=== PATIENT | female | born 1990 | race Caucasian/White ===

== ENCOUNTER 2016-10-05 17:33 | Emergency (ER) | payer OTHER ==
[2016-10-05] MEDS ORDERED: IBUPROFEN 800 MG TABLET PO ONE (18:13)
[2016-10-05] MEDS ORDERED: ONDANSETRON 4 MG TAB.RAPDIS PO ONE (18:13)
--- NOTE | 2016-10-05 18:15 | ER Document Report ---
ED Medical Screen (RME) - General Chief Complaint: Dizziness Stated Complaint: HEADACHE,NAUSEA Mode of Arrival: Ambulatory Information source: Patient Notes: Patient presents to the emergency department because she feels faint sick and has a headache. She reports symptoms since yesterday. She does report she fell down 3 [address]ed stairs yesterday but doesn't really think she hit her head. Patient complains of nausea. She took Excedrin at 2:00. PERRL, Nontoxic looking, denies , reports nexplanon TRAVEL OUTSIDE OF THE [place] IN LAST 30 DAYS: No - Related Data Allergies/Adverse Reactions: Penicillins Allergy (Mild, Verified 10/05/16 18:10) Hives amoxicillin [Amoxicillin] Allergy (Verified 10/05/16 18:10) Past Medical History Neurological Medical History: Reports: Hx Migraine Psychiatric Medical History: Reports: Hx Anxiety - Immunizations Hx Diphtheria, Pertussis, Tetanus Vaccination: No
[2016-10-05] MEDS ORDERED: ALPRAZOLAM 0.25 MG TABLET PO ONE (22:22)
--- NOTE | 2016-10-05 22:24 | ER Document Report ---
ED General - General Chief Complaint: Dizziness Stated Complaint: HEADACHE,NAUSEA Mode of Arrival: Ambulatory Information source: Patient Notes: This is a 25-year-old female who presents to the ER for evaluation of feeling nauseated and lightheaded for the past 2 or 3 days. She actually states that the symptoms have been going on even longer but worse the past 2 days. Also today she has a sharp intermittent left-sided headache which at this time has been well controlled with the Motrin that she received upon arrival. She denies any fevers or vomiting. No neck pain or stiffness. She states that she takes Klonopin for anxiety and she ran out about one week ago. She has an appointment with her primary care doctor in a few days for her refill. TRAVEL OUTSIDE OF THE [place] IN LAST 30 DAYS: No - Related Data Allergies/Adverse Reactions: Penicillins Allergy (Mild, Verified 10/05/16 18:10) Hives amoxicillin [Amoxicillin] Allergy (Verified 10/05/16 18:10) Past Medical History - General Information source: Patient - Social History Smoking Status: Current Some Day Smoker Chew tobacco use (# tins/day): No Frequency of alcohol use: None Drug Abuse: None Family History: Reviewed & Not Pertinent Patient has suicidal ideation: No Patient has homicidal ideation: No Neurological Medical History: Reports: Hx Migraine Renal/ Medical History: Denies: Hx Peritoneal Dialysis Psychiatric Medical History: Reports: Hx Anxiety Surgical Hx: Negative - Immunizations Hx Diphtheria, Pertussis, Tetanus Vaccination: No Review of Systems - Review of Systems Notes: REVIEW OF SYSTEMS: CONSTITUTIONAL : Denies fever, chills, or sweats. Denies recent illness. EENT: Denies eye, ear, throat, or mouth pain or symptoms. Denies nasal or sinus congestion. CARDIOVASCULAR: Denies chest pain. RESPIRATORY: Denies cough, cold, or chest congestion. Denies shortness of breath, difficulty breathing, or wheezing. GASTROINTESTINAL: Denies abdominal pain. Nausea per HPI. No vomiting. GENITOURINARY: Denies difficulty urinating, painful urination, burning, frequency, or blood in urine. FEMALE GENITOURINARY: Denies vaginal bleeding, abnormal or irregular periods MUSCULOSKELETAL: left ribcage pain SKIN: Denies rash or skin lesions. HEMATOLOGIC : Denies easy bruising or bleeding. LYMPHATIC: Denies swollen, enlarged glands. NEUROLOGICAL: Denies altered mental status or loss of consciousness. Headache as per HPI, but it has resolved now PSYCHIATRIC: anxiety, out of Klonopin ALL OTHER SYSTEMS REVIEWED AND NEGATIVE. Physical Exam - Vital signs Vitals: Temp Pulse Resp BP Pulse Ox 98.6 F 72 169 H 142/96 H 100 10/05/16 18:10 10/05/16 18:10 10/05/16 18:10 10/05/16 18:10 10/05/16 18:10 - Notes Notes: PHYSICAL EXAMINATION: GENERAL: Well-appearing, well-nourished and in no acute distress, but somewhat anxious affect HEAD: Atraumatic, normocephalic. EYES: Pupils equal round and reactive to light, extraocular movements intact, sclera anicteric, conjunctiva are normal. ENT: nares patent, oropharynx clear without exudates. Moist mucous membranes. NECK: Normal range of motion, supple without lymphadenopathy LUNGS: Breath sounds clear to auscultation bilaterally and equal. No wheezes rales or rhonchi. HEART: Regular rate and rhythm without murmurs CHEST: No external deformity. No bruising. +TTP to left lateral ribcage. No crepitus ABDOMEN: Soft, nontender, normoactive bowel sounds. No guarding, no rebound. No masses appreciated. EXTREMITIES: Normal range of motion, no pitting or edema. No cyanosis. NEUROLOGICAL: Cranial nerves grossly intact. Normal speech, normal gait. Normal sensory, motor, and reflex exams. PSYCH: anxious affect SKIN: Warm, Dry, normal turgor, no rashes or lesions noted. Course - Re-evaluation Re-evalutation: 10/05/16 23:15 Patient states that she fell down 3 stairs yesterday after she mis-stepped. She did not hit her head and she denies loss of consciousness. However she has left-sided rib pain that she states hurts with deep inspiration. 10/05/16 23:17 Orthostatic vitals obtained and are normal 10/06/16 00:18 I verified that we are still awaiting chest x-ray and rib x-rays. Radiology will call when they are ready for patient. - Vital Signs Vital signs: Temp Pulse Resp BP Pulse Ox 98.6 F 74 18 121/84 99 10/05/16 23:09 10/05/16 23:09 10/05/16 23:09 10/05/16 23:09 10/05/16 23:09 - Laboratory Laboratory results interpreted by me: 10/05/16 22:39 Urine Ketones TRACE H Ur Leukocyte Esterase LARGE H - Diagnostic Test Radiology reviewed: Image reviewed Discharge - Discharge Clinical Impression: Nausea, Anxiety UTI (urinary tract infection) Qualifiers: Urinary tract infection type: acute cystitis Hematuria presence: without hematuria Qualified Code(s): N30.00 - Acute cystitis without hematuria Condition: Good Disposition: HOME, SELF-CARE Additional Instructions: Rib Contusion You have been diagnosed as having bruised ribs. It will usually take a few weeks for these injured ribs to heal. You should cough or take a deep breath at least every hour or two to prevent lung complications. You should not engage in any strenuous physical activity until released by your physician. The usual rule is "if it hurts, don' t do it." Return if you develop any of the following: (1) Fever or chills. (2) Persistent cough, coughing up blood, or shortness of breath. (3) Increasing pain. (4) Weakness, lightheadedness, or fainting. URINARY TRACT INFECTION: Your evaluation indicates that you have a urinary tract infection. This is due to germs growing in the bladder. This is a common problem. This infection usually responds quickly to antibiotics. Your antibiotic should be taken exactly as prescribed. Drink plenty of fluids -- three to four quarts a day. Occasionally, a bladder anesthetic will be prescribed to help stop the feeling of urgency until the antibiotic has a chance to clear the infection. This may cause your urine to be dark orange. Certain urine infections require a culture. If the doctor obtained a culture, the results will be back in two days. You should call to see if a change in treatment is needed. A repeat urinalysis after you finish treatment is often recommended. The physician will let you know if further testing is required. Call the doctor if you develop fever, chills, flank pain, inability to urinate, or blood in the urine. ANTIBIOTIC THERAPY: You have been given an antibiotic prescription. It's important that you take all the medication, unless instructed otherwise by your physician. Failure to complete the entire course can result in relapse of your condition. Common side effects of antibiotics include nausea, intestinal cramping, or diarrhea. Women may develop vaginal yeast infections, and babies can get yeast (thrush) in the mouth following the use of antibiotics. Contact your physician if you develop significant side effects from this medication. Allergy to this antibiotic can result in hives, wheezing, faintness, or itching. If symptoms of allergy occur, stop the medication and call the doctor. TRIMETHOPRIM-SULFA: You have been given a prescription for trimethoprim-sulfa (TMS, Septra, Bactrim). This is a combination antibiotic of the sulfa class, often used for urinary tract infections, middle ear infections, bronchitis, shigella intestinal infection, and Pneumocystis pneumonia. TMS is usually well-tolerated. Occasional side effects include nausea and decreased appetite. Septra is not recommended for infants less than two months of age. Do not take this medication if you have experienced severe side effects or allergy to sulfa medicine. You should stop this medicine at once and contact your physician if you develop any rash, joint pain, shortness of breath, bruising, or jaundice ( yellow color in the skin), or if you develop any other new or unusual symptoms. Nausea or Vomiting, Nonspecific Vomiting (or nausea without vomiting) can be caused by many different problems. Of course, it can mean that something's wrong with the stomach, such as "stomach flu," ulcers, or inflammation. But it can also be a symptom of a problem that has nothing to do with the stomach or intestines. Vomiting is common with severe headaches, earaches, and tonsillitis. We see it with pneumonia or heart attacks. Drugs can cause nausea. Many abdominal problems cause vomiting; for example, gallstones, kidney stones, pancreatitis, and intestinal obstruction (blocked bowels). In most cases, curing the vomiting depends on fixing the problem that caused it. For temporary relief, we may use an anti-nausea medicine. For home use, we can prescribe suppositories, chewable pills, pills that dissolve in the mouth, or liquid anti-nausea drugs. If the vomiting seems to be caused by a problem in the stomach, acid-suppressing drugs may be prescribed as well. It's important to avoid dehydration. Sip clear liquids. Take increasing amounts of fluid over the first 24 hours. Then start small amounts of bland foods (such as dry toast, applesauce, mashed potato). Avoid aspirin, tobacco, and alcohol. Gradually resume your usual diet. If the vomiting worsens, if the problem that's making you vomit worsens, or if there's evidence of bleeding in the stomach (such as black, tarry stool, bloody or black vomit, or lightheadedness), you should return immediately. Call your doctor if you aren't improved in 24 to 36 hours. Anxiety The physician feels that some of your health problems are being caused by anxiety. Anxiety affects your health in many ways. Anxiety alone can cause palpitations, sweats, chest pains, abdominal pains, shortness of breath, and headaches. It contributes to ulcer disease, high blood pressure, irritable bowel syndrome, and has been shown to cause flare-ups of many other diseases. Anxiety is not a simple disorder to treat. If the anxiety is due to recent life stresses, you may simply need time to "work through" the changes. If the anxiety is due to an underlying unhappiness with yourself or due to psychiatric disturbance, professional help will be needed. Your physician can refer you for further help if needed. Anti-anxiety medication is occasionally given if the stress is acute or if you are having trouble sleeping. Chronic or frequent use of these medications is not a good idea because the body becomes reliant on it, preventing you from dealing with life's normal stresses. FOLLOW-UP CARE: If you have been referred to a physician for follow-up care, call the physician s office for an appointment as you were instructed or within the next two days. If you experience worsening or a significant change in your symptoms, notify the physician immediately or return to the Emergency Department at any time for re-evaluation. Prescriptions: Ibuprofen [Motrin 600 Mg Tablet] 600 mg PO TID PRN #15 tablet PRN Reason: Sulfamethoxazole/Trimethoprim [Bactrim Ds Tablet] 1 each PO BID #6 tablet
[2016-10-05 22:53] LABS: APPEARANCE,URINE CLOUDY; BILIRUBIN,URINE NEGATIVE (NEGATIVE); GLUCOSE, URINE NEGATIVE (NEGATIVE); KETONES,URINE TRACE mg/dL (NEGATIVE); LEUKOCYTE ESTERASE,URINE LARGE (NEGATIVE); NITRITE,URINE NEGATIVE (NEGATIVE); PROTEIN,URINE NEGATIVE (NEGATIVE); URINE SPECIFIC GRAVITY 1.018; UROBILINOGEN,URINE NEGATIVE mg/dL (<2.0)
[2016-10-05 23:10] VITALS: BP 121/84
== END 2016-10-06 01:13 | disposition home or self-care (01) ==
LOC: ER 17:33
DX: N30.00 Acute cystitis without hematuria (principal); R07.81 Pleurodynia; W10.9XXA Fall (on) (from) unspecified stairs and steps, initial encounter; R42 Dizziness and giddiness; F41.9 Anxiety disorder, unspecified; R11.0 Nausea; R51 Headache; F17.200 Nicotine dependence, unspecified, uncomplicated; Z88.0 Allergy status to penicillin; Z86.69 Personal history of other diseases of the nervous system and sense organs
CPT/HCPCS: 99284; 81025; 81001; 87804; 71101; S0119

== ENCOUNTER 2017-01-22 08:53 | Day surgery (SDC) | payer OTHER ==
[~2017-01-22 08:53] MED LIST: PROPOFOL INJ 200 MG/20 ML VIAL IV ONE
[2017-01-22 10:40] VITALS: BP 122/84
--- NOTE | 2017-01-22 13:25 | Operative Report ---
Operative Report DATE OF SURGERY: 01/22/17 Operative Report: The risks, benefits and alternatives are explained to the patient in detail and informed consent was obtained. Patient was taken back to the endoscopy suite and placed in the left, lateral decubital position. Timeout was called. Propofol medications administered. A rectal examination was done which did not reveal any masses, tears or fissures. An Olympus video scope was inserted in the patient's rectum. The scope was then gradually advanced all the way to the cecum. The cecum was identified by the usual anatomical landmarks including the ileocecal valve as well as appendiceal office. Photodocumentation is obtained. The scope was then carefully withdrawn through the various segments of the colon including the ascending colon, hepatic flexure, transverse colon, splenic flexure, descending colon and finding to the rectosigmoid portions of the colon. Retroflexion maneuver was performed. Prep is good. Photodocumentation was obtained. PREOPERATIVE DIAGNOSIS: Abdominal pain, change in bowel habits POSTOPERATIVE DIAGNOSIS: Mild inflammation noted throughout the colon, patchy in nature. There is no loss of the haustral or blood vessel architecture. Biopsies obtained to rule out Crohn's disease. No masses, AVMs, diverticulosis noted OPERATION: Colonoscopy with biopsy SURGEON: AVIS JACKSON ANESTHESIA: LMAC TISSUE REMOVED OR ALTERED: As described above. COMPLICATIONS: None. ESTIMATED BLOOD LOSS: None. INTRAOPERATIVE FINDINGS: As described above PROCEDURE: Patient tolerated the procedure well. No immediate postprocedure complications are noted. Patient discharged in good condition. Discharge date 01/22/2017. Discharge diet: Regular. Discharge activity: Regular. 2-3 week follow-up to discuss findings. Patient is instructed to call the office or proceed to the emergency room should there be any further problems or questions. We will wait on biopsies.
== END 2017-01-22 10:40 | disposition home or self-care (01) ==
LOC: END 08:53
PROVIDERS: ATTEND Internal Medicine Gastroenterology
PROC: 0DBE8ZX Excision of Large Intestine, Via Natural or Artificial Opening Endoscopic, Diagnostic (ICD-10-PCS; principal; 2017-01-22 10:30)
DX: K52.9 Noninfective gastroenteritis and colitis, unspecified (principal); F17.210 Nicotine dependence, cigarettes, uncomplicated; F41.9 Anxiety disorder, unspecified; Z79.899 Other long term (current) drug therapy; Z88.0 Allergy status to penicillin
CPT/HCPCS: 45380; 88305 ×2; J2704; 810

== ENCOUNTER 2017-02-23 08:07 | Day surgery (SDC) | payer OTHER ==
[~2017-02-23 08:07] MED LIST changes: +DIPHENHYDRAMINE HCL 50 MG/ML VIAL ONE; +EPINEPHRINE INJ 1 MG/10 ML DISP.SYRIN ONE; +FLUMAZENIL INJ 0.5 MG/5 ML VIAL IV ONE; +GLUCAGON,HUMAN RECOMB 1 MG INJ ONE; +NALOXONE HCL INJ/PF 0.4 MG/1 ML SDV ONE; +ONDANSETRON HCL INJ/PF 4 MG/2 ML SDV ONE; -PROPOFOL INJ 200 MG/20 ML VIAL IV ONE
[2017-02-23] MEDS: MIDAZOLAM 2 MG/2 ML INJ ONE ×3 (08:30→08:38)
[2017-02-23] MEDS: FENTANYL CITRATE INJ/PF 100 MCG/2 ML AMPUL ONE ×2 (08:32→08:36)
--- NOTE | 2017-02-23 08:48 | Operative Report ---
Operative Report DATE OF SURGERY: 02/23/17 Operative Report: The risks benefits and alternatives of the procedure explained to the patient in detail and informed consent is obtained. A GIF Olympus video scope was inserted into the patient's mouth and hypopharynx, the esophagus is identified intubated and insufflated, the scope was then advanced through the esophagus stomach and duodenum, retroflexion maneuver is done, the esophagus stomach and first and second portions of the duodenum examined PREOPERATIVE DIAGNOSIS: Epigastric pain rule out peptic ulcer disease POSTOPERATIVE DIAGNOSIS: Hiatal hernia gastritis status post biopsy for Helicobacter pylori OPERATION: EGD with biopsy SURGEON: AVIS JACKSON ANESTHESIA: Moderate Sedation - 4 mg of Zofran. 6 mg of Versed, 125 mcg of fentanyl. Conscious sedation monitoring time 30 minutes. TISSUE REMOVED OR ALTERED: Gastric specimen obtained to rule out Helicobacter pylori COMPLICATIONS: None. ESTIMATED BLOOD LOSS: None. INTRAOPERATIVE FINDINGS: As described above. PROCEDURE: Patient tolerated the procedure well. No immediate postprocedure complications are noted. Patient discharged in good condition. Discharge date 02/23/2017. Discharge diet: Regular. Discharge activity: Regular. 2-3 week follow-up to discuss findings. Patient is instructed to call the office or proceed to the emergency room should there be any further problems or question. We will wait on biopsies.
[2017-02-23 09:54] VITALS: BP 101/66
== END 2017-02-23 10:00 | disposition home or self-care (01) ==
LOC: END 08:07
PROVIDERS: ATTEND Internal Medicine Gastroenterology
DX: K44.9 Diaphragmatic hernia without obstruction or gangrene (principal); K29.50 Unspecified chronic gastritis without bleeding
CPT/HCPCS: 43239; 88342 ×2; 88305 ×2; J2250; J3010; J1610; J2405; J0171; J1200; J2310; J3490

== ENCOUNTER 2017-06-12 10:52 | Emergency (ER) | payer BC ==
--- NOTE | 2017-06-12 13:25 | ER Document Report ---
ED Medical Screen (RME) - General Chief Complaint: Abdominal Pain Stated Complaint: VAGINAL BLEEDING Time Seen by Provider: 06/12/17 13:19 Notes: Patient had a D and C approximate 2 weeks ago. She states since that time she has had bleeding and abdominal pain. She states she has seen a provider who did this see and see several times since the procedure. They have had removed blood clots in of tried some different medicines with no relief. She had an appointment today with 1:[address] Roman. I called and spoke with Dr. Roman he recommends drawing labs and getting an ultrasound and talking with Dr. Anna. TRAVEL OUTSIDE OF THE [place] IN LAST 30 DAYS: No - Related Data Allergies/Adverse Reactions: amoxicillin [Amoxicillin] Allergy (Mild, Verified 06/12/17 13:04) Hives Penicillins Allergy (Mild, Verified 06/12/17 13:04) Hives Past Medical History - Social History Frequency of alcohol use: None Drug Abuse: None - Past Medical History Cardiac Medical History: Denies: Hx Coronary Artery Disease, Hx Heart Attack, Hx Hypertension Pulmonary Medical History: Denies: Hx Asthma, Hx Bronchitis, Hx COPD, Hx Pneumonia Neurological Medical History: Reports: Hx Migraine. Denies: Hx Cerebrovascular Accident, Hx Seizures Renal/ Medical History: Denies: Hx Peritoneal Dialysis Musculoskeltal Medical History: Denies Hx Arthritis Psychiatric Medical History: Reports: Hx Anxiety Past Surgical History: Denies: Hx Hysterectomy - Immunizations Hx Diphtheria, Pertussis, Tetanus Vaccination: Yes Physical Exam - Vital signs Vitals: Temp Pulse Resp BP Pulse Ox 98.5 F 89 18 141/84 H 100 06/12/17 11:23 06/12/17 11:23 06/12/17 11:23 06/12/17 11:23 06/12/17 11:23 Course - Vital Signs Vital signs: Temp Pulse Resp BP Pulse Ox 98.5 F 89 18 141/84 H 100 06/12/17 11:23 06/12/17 11:23 06/12/17 11:23 06/12/17 11:23 06/12/17 11:23
[2017-06-12 13:45] LABS: ABSOLUTE BASOPHILS # (AUTO) 0.1 10^3/uL (0.0-0.2); ABSOLUTE EOSINOPHILS # (AUTO) 0.1 10^3/uL (0.0-0.6); ABSOLUTE LYMPHOCYTES (AUTO) 2.4 10^3/uL (0.5-4.7); ABSOLUTE MONOCYTES (AUTO) 0.6 10^3/uL (0.1-1.4); ABSOLUTE NEUT (AUTO) 8.1 10^3/uL (1.7-8.2); BASOPHILS % (AUTO) 0.5 % (0-2); EOSINOPHILS % (AUTO) 1.2 % (0-6); HEMATOCRIT 36.7 % (36.0-47.0); HEMOGLOBIN 12.6 g/dL (12.0-15.5); HGB HCT DIFFERENCE 1.1; LYMPHOCYTES % (AUTO) 21.3 % (13-45); MEAN CORPUSCULAR HEMOGLOBIN 32.4 pg (27.0-33.4); MEAN CORPUSCULAR HGB CONC 34.3 g/dL (32.0-36.0); MEAN CORPUSCULAR VOLUME 95 fl (80-97); MONOCYTES % (AUTO) 5.3 % (3-13); RED BLOOD COUNT 3.89 10^6/uL (3.72-5.28); RED CELL DISTRIBUTION WIDTH 12.5 % (11.5-14.0); SEGMENTED NEUTROPHILS % (AUTO) 71.7 % (42-78); WHITE BLOOD COUNT 11.3 10^3/uL (4.0-10.5)
[2017-06-12 14:10] LABS: ALANINE AMINOTRANSFERASE 25 U/L (9-52); ALBUMIN 4.2 g/dL (3.5-5.0); ALKALINE PHOSPHATASE 82 U/L (38-126); ANION GAP 10 (5-19); ASPARTATE AMINO TRANSFERASE 16 U/L (14-36); BILIRUBIN,DIRECT 0.3 mg/dL (0.0-0.4); BILIRUBIN,TOTAL 0.3 mg/dL (0.2-1.3); BLOOD UREA NITROGEN 7 mg/dL (7-20); CALCIUM 9.4 mg/dL (8.4-10.2); CARBON DIOXIDE 29 mmol/L (22-30); CHLORIDE 103 mmol/L (98-107); CREATININE RESULT 0.75 mg/dL (0.52-1.25); GLUCOSE 103 mg/dL (75-110); POTASSIUM 3.7 mmol/L (3.6-5.0); SODIUM 141.5 mmol/L (137-145); TOTAL PROTEIN 7.1 g/dL (6.3-8.2)
--- NOTE | 2017-06-12 14:53 | RADIOLOGY REPORT (SQ) ---
EXAM DESCRIPTION: U/S NON OB PEL TV W/DOPPLER COMPLETED DATE/TIME: 06/12/2017 2:38 pm REASON FOR STUDY: pelvic pain/r.o. retained products COMPARISON: None. TECHNIQUE: Dynamic and static grayscale images acquired of the pelvis via transvaginal approach and recorded on PACS. Additional selected color Doppler and spectral images recorded. LIMITATIONS: None. FINDINGS: UTERUS: Contour normal. No mass. ENDOMETRIAL STRIPE: Thickening. Heterogeneity of material within the canal. CERVIX: No nabothian cysts. RIGHT OVARY: Not visualized. RIGHT OVARY DOPPLER: Not visualized LEFT OVARY: 3.6 cm cyst. LEFT OVARY DOPPLER: Normal arterial vascular flow without evidence for torsion. FREE FLUID: Small volume of free fluid of right adnexal region. OTHER: No other significant finding. MEASUREMENTS: UTERUS: 10.7 x 5.8 x 4.8 cm. ENDOMETRIAL STRIPE: 9.3 mm. RIGHT OVARY: Not visualized LEFT OVARY: 4.9 x 4.1 x 3.6 cm IMPRESSION: Status post D and C on 05/24/2017. Heterogeneity of material within the endometrial pola l which measures 9.3 mm could represent retained products of conception left ovarian cyst. Small vol ume of free fluid right adnexal region. TECHNICAL DOCUMENTATION: JOB ID: [id number] [employer]- All Rights Reserved
[2017-06-12] MEDS ORDERED: HYDROCODONE/ACETAMINOPHEN 5-325 MG TABLET PO ONE (15:22)
--- NOTE | 2017-06-12 15:35 | ER Document Report ---
ED GI/ - General Chief Complaint: Abdominal Pain Stated Complaint: VAGINAL BLEEDING Time Seen by Provider: 06/12/17 13:19 Notes: The patient is a 27-year-old female who presents with increased vaginal bleeding. She had a miscarriage May 24. She has an appointment with her OB, Dr. Roman, and was told to come to the ER for further evaluation and treatment. Patient denies syncope, headache, nausea, vomiting, lightheadedness , chest pain, urinary symptoms or fevers. TRAVEL OUTSIDE OF THE [place] IN LAST 30 DAYS: No - Related Data Allergies/Adverse Reactions: amoxicillin [Amoxicillin] Allergy (Mild, Verified 06/12/17 13:04) Hives Penicillins Allergy (Mild, Verified 06/12/17 13:04) Hives Past Medical History - General Information source: Patient - Social History Smoking Status: Never Smoker Frequency of alcohol use: None Drug Abuse: None Family History: Reviewed & Not Pertinent - Past Medical History Cardiac Medical History: Denies: Hx Coronary Artery Disease, Hx Heart Attack, Hx Hypertension Pulmonary Medical History: Denies: Hx Asthma, Hx Bronchitis, Hx COPD, Hx Pneumonia Neurological Medical History: Reports: Hx Migraine. Denies: Hx Cerebrovascular Accident, Hx Seizures Renal/ Medical History: Denies: Hx Peritoneal Dialysis Musculoskeltal Medical History: Denies Hx Arthritis Psychiatric Medical History: Reports: Hx Anxiety Past Surgical History: Denies: Hx Hysterectomy - Immunizations Hx Diphtheria, Pertussis, Tetanus Vaccination: Yes Review of Systems - Review of Systems Notes: REVIEW OF SYSTEMS: CONSTITUTIONAL: -fevers, -chills EENT: -eye pain, -difficulty swallowing, -nasal congestion CARDIOVASCULAR:-chest pain, -syncope. RESPIRATORY: -cough, -SOB GASTROINTESTINAL: -abdominal pain, - nausea, -vomiting, -diarrhea GENITOURINARY: -dysuria, -hematuria, +vaginal bleeding MUSCULOSKELETAL: -back pain, -neck pain SKIN: -rash or skin lesions. HEMATOLOGIC: -easy bruising or bleeding. LYMPHATIC: -swollen, enlarged glands. NEUROLOGICAL: -altered mental status or loss of consciousness, -headache, - neurologic symptoms PSYCHIATRIC: -anxiety, -depression. ALL OTHER SYSTEMS REVIEWED AND NEGATIVE. Physical Exam - Vital signs Vitals: Temp Pulse Resp BP Pulse Ox 98.5 F 89 18 141/84 H 100 06/12/17 11:23 06/12/17 11:23 06/12/17 11:23 06/12/17 11:23 06/12/17 11:23 - Notes Notes: PHYSICAL EXAMINATION: GENERAL: Well-appearing, well-nourished and in no acute distress. HEAD: Atraumatic, normocephalic. EYES: Pupils equal round and reactive to light, extraocular movements intact, sclera anicteric, conjunctiva are normal. ENT: nares patent, oropharynx clear without exudates. Moist mucous membranes. NECK: Normal range of motion, supple without lymphadenopathy LUNGS: Breath sounds clear to auscultation bilaterally and equal. No wheezes rales or rhonchi. HEART: Regular rate and rhythm without murmurs ABDOMEN: Soft, nontender, normoactive bowel sounds. No guarding, no rebound. No masses appreciated. : Deferred to OB already in ED. EXTREMITIES: Normal range of motion, no pitting or edema. No cyanosis. NEUROLOGICAL: Cranial nerves grossly intact. Normal speech, normal gait. Normal sensory and motor exams. PSYCH: Normal mood, normal affect. SKIN: Warm, Dry, normal turgor, no rashes or lesions noted. Course - Re-evaluation Re-evalutation: 06/12/17 15:38 Dr. Anna in ED evaluating patient for possible retained POC. - Vital Signs Vital signs: Temp Pulse Resp BP Pulse Ox 98.5 F 89 18 141/84 H 100 06/12/17 11:23 06/12/17 11:23 06/12/17 11:23 06/12/17 11:23 06/12/17 11:23 - Laboratory Result Diagrams: 06/12/17 13:36 06/12/17 13:36 Laboratory results interpreted by me: 06/12/17 13:36 WBC 11.3 H
--- NOTE | 2017-06-12 16:05 | ER Document Report ---
ED General - General Chief Complaint: Abdominal Pain Stated Complaint: VAGINAL BLEEDING Time Seen by Provider: 06/12/17 13:19 Mode of Arrival: Ambulatory Information source: Patient Notes: Patient presents complaining of severe pelvic pain. It is constant crampy. It radiates to her back. Nothing makes it better or worse. She states it started after having a D&C approximately 2 weeks ago. She states she is also had vaginal bleeding since that time. She states she has seen the provider who performed a D&C several times since the procedure. He has provided medications but they have not offered her any relief. She has had no vomiting or fevers. TRAVEL OUTSIDE OF THE [place] IN LAST 30 DAYS: No - Related Data Allergies/Adverse Reactions: amoxicillin [Amoxicillin] Allergy (Mild, Verified 06/12/17 13:04) Hives Penicillins Allergy (Mild, Verified 06/12/17 13:04) Hives Home Medications: Current Home Medications Tramadol HCl 50 mg PO Q6H PRN 06/12/17 [History] Past Medical History - Social History Smoking Status: Never Smoker Frequency of alcohol use: None Drug Abuse: None Family History: Reviewed & Not Pertinent - Past Medical History Cardiac Medical History: Denies: Hx Coronary Artery Disease, Hx Heart Attack, Hx Hypertension Pulmonary Medical History: Denies: Hx Asthma, Hx Bronchitis, Hx COPD, Hx Pneumonia Neurological Medical History: Reports: Hx Migraine. Denies: Hx Cerebrovascular Accident, Hx Seizures Renal/ Medical History: Denies: Hx Peritoneal Dialysis Musculoskeltal Medical History: Denies Hx Arthritis Psychiatric Medical History: Reports: Hx Anxiety Past Surgical History: Denies: Hx Hysterectomy - Immunizations Hx Diphtheria, Pertussis, Tetanus Vaccination: Yes Review of Systems - Review of Systems Constitutional: denies: Chills, Fever Cardiovascular: denies: Chest pain, Dyspnea Respiratory: denies: Cough, Short of breath -: Yes All other systems reviewed and negative Physical Exam - Vital signs Vitals: Temp Pulse Resp BP Pulse Ox 98.5 F 89 18 141/84 H 100 06/12/17 11:23 06/12/17 11:23 06/12/17 11:23 06/12/17 11:23 06/12/17 11:23 Interpretation: Hypertensive - General General appearance: Appears well, Alert - HEENT Head: Normocephalic, Atraumatic Eyes: Normal Pupils: PERRL - Respiratory Respiratory status: No respiratory distress Chest status: Nontender Breath sounds: Normal Chest palpation: Normal - Cardiovascular Rhythm: Regular Heart sounds: Normal auscultation Murmur: No - Abdominal Inspection: Normal Distension: No distension Bowel sounds: Normal Tenderness: Nontender Organomegaly: No organomegaly - Back Back: Normal, Nontender - Extremities General upper extremity: Normal inspection, Nontender, Normal color, Normal ROM , Normal temperature General lower extremity: Normal inspection, Nontender, Normal color, Normal ROM , Normal temperature, Normal weight bearing. No: Reed's sign - Neurological Neuro grossly intact: Yes Cognition: Normal Orientation: AAOx4 [place] Coma Scale Eye Opening: Spontaneous [place] Coma Scale Verbal: Oriented [place] Coma Scale Motor: Obeys Commands [place] Coma Scale Total: 15 Speech: Normal Motor strength normal: LUE, RUE, LLE, RLE Sensory: Normal - Psychological Associated symptoms: Normal affect, Normal mood - Skin Skin Temperature: Warm Skin Moisture: Dry Skin Color: Normal Course - Re-evaluation Re-evalutation: 06/12/17 16:01 Dr. Anna saw and evaluated the patient in the emergency department. Please see his note. - Vital Signs Vital signs: Temp Pulse Resp BP Pulse Ox 98.5 F 89 18 141/84 H 100 06/12/17 11:23 06/12/17 11:23 06/12/17 11:23 06/12/17 11:23 06/12/17 11:23 - Laboratory Result Diagrams: 06/12/17 13:36 06/12/17 13:36 Laboratory results interpreted by me: 06/12/17 13:36 WBC 11.3 H - Diagnostic Test Radiology reviewed: Image reviewed, Reports reviewed - I discussed the ultrasound with Dr. Anna. Dr. Anna feels there is no evidence of retained products. Discharge - Discharge Clinical Impression: Pelvic pain Condition: Stable Disposition: HOME, SELF-CARE Instructions: Abdominal Pain ([facility]) Additional Instructions: Please follow-up with women's health in 3-4 days. Prescriptions: Doxycycline Hyclate 100 mg PO BID #6 capsule Misoprostol [Cytotec 0.2 mg Tablet] 200 mcg VG ONCE PRN #3 tablet PRN Reason: Forms: Elevated Blood Pressure Referrals: IAIN ANNA MD [ACTIVE STAFF] - Follow up in 3-5 days
[2017-06-12 16:25] VITALS: BP 119/82
== END 2017-06-12 16:25 | disposition home or self-care (01) ==
LOC: ER 10:52
DX: R10.2 Pelvic and perineal pain (principal); R10.9 Unspecified abdominal pain; Z79.899 Other long term (current) drug therapy
CPT/HCPCS: 36415; 76830; 80053; 85025; 93976; 99285

== ENCOUNTER → 2018-04-19 | Outpatient (CLI) | payer BC, MEDICAID ==
--- NOTE | 2018-04-19 09:41 | RADIOLOGY REPORT (SQ) ---
EXAM DESCRIPTION: CT SOFT TISSUE NECK WITH COMPLETED DATE/TIME: 04/19/2018 8:33 am REASON FOR STUDY: LOCALIZED ENLARGED ADENOPATHY (R59.0) R59.0 LOCALIZED ENLARGED LYMPH NODES COMPARISON: None. TECHNIQUE: Post IV contrasted scanning from skull base through lung apices with review of bone, soft tissue and lung windows. Reconstructed coronal and sagittal MPR images reviewed. All images stored on PACS. All CT scanners at this facility use dose modulation, iterative reconstruction, and/or weight based d osing when appropriate to reduce radiation dose to as low as reasonably achievable (ALARA). [facility]: Dose Right [facility]: CareDose [facility]: Dose Right [facility]: Teradose 4D [facility]: EasyLink CONTRAST TYPE AND DOSE: contrast/concentration: Isovue 350.00 mg/ml; Total Contrast Delivered: 75.0 ml; Total Saline Delivered: 55.0 ml RENAL FUNCTION: None required. The patient is less than 50 years old. RADIATION DOSE: 18 mGy . LIMITATIONS: None. FINDINGS: SKULL BASE: Intact. MAJOR SALIVARY GLANDS: No solid or cystic masses. No inflammatory changes. LYMPHADENOPATHY: There are multiple small less than 7 mm short axis lymph nodes along the carotid [place] and posterior triangles bilaterally. No bulky adenopathy worrisome for malignancy. MUCOSAL MASSES OR ASYMMETRY: No mucosal masses or asymmetry. LARYNX/CORDS: No abnormal findings. VASCULAR STRUCTURES: The major vessels are patent. LUNG APICES: Clear. BONES: Intact. THYROID: Normal size. No masses. PARANASAL SINUSES: Circumferential mucous membrane thickening with fluid in the right maxillary sinus , from sinusitis OTHER: No other significant finding. IMPRESSION: Right maxillary sinusitis TECHNICAL DOCUMENTATION: JOB ID: [id number] Quality ID # [id number]: Final reports with documentation of one or more dose reduction techniques (e.g., Au tomated exposure control, adjustment of the mA and/or kV according to patient size, use of iterative reconstruction technique) 2010 [employer]- All Rights Reserved Reading location - IP/workstation name: [email or web address]
== END ==
LOC: RAD 07:55
PROVIDERS: ATTEND Family Medicine
DX: R59.0 Localized enlarged lymph nodes (principal)
CPT/HCPCS: 70491